=== PATIENT | female | born 1965 | race African-American/Black ===

== ENCOUNTER 2017-11-14 19:06 | Emergency (ER) | payer OTHER, MEDICARE, MEDICAID ==
[~2017-11-14] VITALS: Ht 167.6 cm; Wt 105.0 kg
[2017-11-14] MEDS ORDERED: ALBUTEROL (0.083%) 2.5MG/3ML NEB HHN STA (21:27)
[2017-11-14] MEDS ORDERED: PREDNISONE 20MG TABLET PO STA (21:27)
[2017-11-14] MEDS ORDERED: IPRATROPIUM BROMIDE (0.02%) 0.5MG/2.5ML NEB HHN STA (21:27)
[2017-11-14 22:10] LABS: HCG SCREEN NEGATIVE
[2017-11-14 23:45] VITALS: BP 120/76
== END 2017-11-14 23:45 | disposition home or self-care (01) ==
LOC: ER 21:18
DX: J45.901 Unspecified asthma with (acute) exacerbation (principal); I51.7 Cardiomegaly
CPT/HCPCS: 71010; 84703; 93005; 94640; 99285; J7512; J7611

== ENCOUNTER 2019-03-13 13:33 | Emergency (ER) | payer OTHER, MEDICARE, MEDICAID ==
[~2019-03-13] VITALS: Ht 167.6 cm; Wt 100.0 kg
[2019-03-13] MEDS ORDERED: KETOROLAC 60MG/2ML VIAL IM ONE (17:00)
[2019-03-13 17:38] VITALS: BP 130/75
== END 2019-03-13 17:38 | disposition home or self-care (01) ==
LOC: ER 13:33
DX: M79.671 Pain in right foot (principal); J45.909 Unspecified asthma, uncomplicated; E11.9 Type 2 diabetes mellitus without complications; I10 Essential (primary) hypertension; Z88.6 Allergy status to analgesic agent
CPT/HCPCS: 96372; 99283; J1885